=== PATIENT | male | born 1950 ===

== ENCOUNTER 2018-10-13 09:00 | Inpatient (IN) | payer OTHER ==
[~2018-10-13] VITALS: Ht 172.7 cm; Wt 70.8 kg
[2018-10-13] MEDS ORDERED: ENALAPRIL MALEA20 MG PO (09:49)
[2018-10-13] MEDS ORDERED: ATORVASTATIN CA20 MG PO (09:50)
[2018-10-20] MEDS ORDERED: INTESTINEX680 M1 PO (18:14)
[2018-10-20] MEDS ORDERED: TYLENOL EXTRA500 MG PO (18:14)
== END 2018-10-20 19:07 | disposition home or self-care (01) | DRG 330 ==
LOC: ADM 09:00 → EDSTATUS 09:00 → O/R 10-17 05:54 → SURG 10-17 05:54 → SURH 10-17 07:00 → SURG 10-17 11:26
PROVIDERS: ADMIT Surgery
PROC: 0DQB4ZZ Repair Ileum, Percutaneous Endoscopic Approach (ICD-10-PCS; principal; 2018-10-17 07:00)
DX: Z43.2 Encounter for attention to ileostomy (principal); C20 Malignant neoplasm of rectum; I10 Essential (primary) hypertension; E78.49 Other hyperlipidemia

== ENCOUNTER 2019-05-18 09:57 | Day surgery (SDC) | payer OTHER ==
[~2019-05-18 09:57] MED LIST: ATORVASTATIN CA20 MG PO; ENALAPRIL MALEA20 MG PO; INTESTINEX680 M1 PO; TYLENOL EXTRA500 MG PO
== END 2019-05-18 13:10 | disposition home or self-care (01) ==
LOC: AMB-ENDOS 09:57 → ADM 12:00 → AMB-ENDOS 12:00
DX: K62.89 Other specified diseases of anus and rectum (principal)

== ENCOUNTER 2020-08-15 08:24 | Day surgery (SDC) | payer OTHER | END 2020-08-15 12:05 | disposition home or self-care (01) | LOC: AMB-ENDOS 08:24 | PROVIDERS: ATTEND Surgery | DX: K62.89 Other specified diseases of anus and rectum (principal); Z20.822 Contact with and (suspected) exposure to COVID-19 ==